=== PATIENT | female | born 1950 | race Caucasian/White ===

== ENCOUNTER 2020-08-26 18:07 | Emergency (ER) | payer MEDICARE, SELFPAY ==
--- NOTE | ~2020-08-26 | XR_ITS ---
EXAMINATION: XR hand RT min 3V DATE: 08/26/2020 18:41 INDICATION: Medial right hand pain post fall TECHNIQUE: Posteroanterior, oblique and lateral views of the right hand were obtained. COMPARISON: None. FINDINGS: Diffuse osteopenia. Alignment is normal. No fracture. Mild osteoarthritis at the triscaphe joint. Min imal osteoarthritis at several of the metacarpophalangeal and interphalangeal joints. Bone island at the fifth distal phalanx. Soft tissues are unremarkable. IMPRESSION: 1. No acute osseous abnormality. Reviewed, dictated and finalized at location H. OGRAPH WATCHER
--- NOTE | ~2020-08-26 | XR_ITS ---
EXAMINATION: XR forearm RT 2V DATE: 08/26/2020 18:40 INDICATION: Posterior right elbow pain post fall TECHNIQUE: AP an lateral views of the right forearm were obtained. COMPARISON: none FINDINGS: Oblique intra-articular fracture involving the olecranon. There is mild displacement with 2 mm lucent fracture gap at the articular cortex and 5 mm separation of the fracture margins at the posterior co rtex. Prominent overlying soft tissue swelling. Alignment is otherwise normal. No other fractures nella ntified. Minimal osteoarthritis at the right elbow. No joint effusion is present with displacement of the anterior fat pad. IMPRESSION: 1. Mildly displaced intra-articular fracture of the olecranon. Reviewed, dictated and finalized at location H. OLOGY TEACHER
--- NOTE | 2020-08-26 18:13 | ED.UPPEXIN ---
HPI - Extremity Injury (Upper) General Chief Complaint: Extremity Injury, Upper Stated Complaint: right elbow Time Seen by Provider: 08/26/20 18:25 Source: patient and RN notes reviewed Mode of arrival: ambulatory Limitations: no limitations History of Present Illness HPI narrative: 69-year-old female with history of dementia presents with concern for right elbow pain, right hand pain. Her reports she was taking a walk today, as she usually does, and returned complaining of arm pain. She does not remember how she sustained the injury. Her also reports abrasions to her face, inner lip. Reports she saw the dentist today who confirm she does not have any loose teeth and gave her a mouthwash for the abrasions on the inside of her mouth. She denies any other musculoskeletal pain. Denies any intervention for her pain. MD complaint: injury to: left, arm and elbow Related Data Home Medications Medication Instructions Recorded Confirmed alprazolam 0.25 mg tablet 0.25 mg PO TID PRN 12/14/19 08/26/20 duloxetine 60 mg capsule,delayed 60 mg PO DAILY 12/14/19 08/26/20 release mirtazapine 15 mg tablet 7.5 mg PO .hs tablet 12/14/19 08/26/20 rivastigmine 1 patch TRANSDERM DAILY 12/14/19 08/26/20 Allergies Allergy/AdvReac Type Severity Reaction Status Date / Time ciprofloxacin Allergy Mild Nausea and Verified 08/26/20 18:15 Vomiting sulfamethoxazole Allergy Mild Nausea and Verified 08/26/20 18:15 Vomiting trimethoprim Allergy Mild Nausea and Verified 08/26/20 18:15 Vomiting Review of Systems Review of Systems: Narrative: CONSTITUTIONAL: Denies malaise, chills, sweats, or fever. CARDIOVASCULAR: Denies chest pain, palpitations, or edema. RESPIRATORY: Denies cough or dyspnea. SKIN: Reports abrasions to upper lip MUSCULOSKELETAL: Reports right elbow pain, right hand pain NEUROLOGIC: Denies numbness, weakness All systems reviewed & are unremarkable except as noted in HPI and below PMFSH Social History Social History Smoking status: Never smoker Second hand tobacco smoke exposure: No Alcohol intake: never Comments At time of signature, agree with nursing past medical, surgical, social and family history. There is no relevant family history pertinent to the presenting complaint Exam Narrative: Exam Narrative: GENERAL: Well-appearing, well-nourished, and in no acute distress. HEAD: Normocephalic, atraumatic. EYES: PERRLA, conjunctivae clear NECK: Supple. CHEST: Speaks in full sentences. No respiratory distress. HEART: Regular rate and rhythm. Normal and equal peripheral pulses. EXTREMITIES: Right elbow has normal sensation, limited range of motion. Moderate edema, no ecchymosis.4/5 strength with [xxx] flexion and extension. Normal sensation with sensitivity to light touch and pain. Lateral elbow tenderness. No open wounds, no skin tenting, no devitalized tissue or atrophy, no trophic changes, no obvious deformity, alignment normal, nearby joints and structures intact. Distal pulses palpable and equal bilaterally, skin warm, dry, pink. Capillary refill less than 3 seconds. EXTREMITIES: Right hand and digits of hand have normal strength and sensation. 5/5 strength with digit flexion, extension. Range of motion normal. No clubbing, cyanosis, or edema noted. No tenderness. Skin intact. Normal digital cascade with flexion of fingers, median, ulnar and radial nerve intact. Normal sensation of each side of finger. Can perform 'okay' sign, 'cross over finger test of index and middle fingers' and 'thumbs up' sign. No scissoring. Normal thumb opposition. Good capillary refill and radial pulse. Distal capillary refill less than 3 seconds. SKIN: Warm, dry, no rash. Superficial abrasion noted to right upper lip NEURO: Alert and oriented x3. PSYCH: Normal mood and affect Course Course Emergency Course: Patient is aware of diagnosis, understands and agrees to treatment plan. Anticipatory guidance given. P
[2020-08-26 18:17] VITALS: BP 123/76; PULSE 70; RESP 18; TEMP 36.4; O2SAT 97
== END 2020-08-26 19:04 | disposition home or self-care (01) ==
PROVIDERS: Emergency Provider Nurse Practitioner; PCP Internal Medicine
DX: S52.021A Displaced fracture of olecranon process without intraarticular extension of right ulna, initial encounter for closed fracture (principal); X58.XXXA Exposure to other specified factors, initial encounter; F03.90 Unspecified dementia, unspecified severity, without behavioral disturbance, psychotic disturbance, mood disturbance, and anxiety; F41.9 Anxiety disorder, unspecified
CPT/HCPCS: 29105; 73090; 73130; 99214; A4565; G0463

== ENCOUNTER 2021-05-25 16:51 | Emergency (ER) | payer MEDICARE, SELFPAY ==
[2021-05-25 17:20] VITALS: BP 116/72; PULSE 83; RESP 17; TEMP 36.2; O2SAT 100
--- NOTE | 2021-05-25 17:52 | ED.BACK ---
HPI - Back Pain/Injury General Chief Complaint: Back Pain/Injury Stated Complaint: Lower Back Pain Time Seen by Provider: 05/25/21 17:40 Source: patient, family, RN notes reviewed and old records reviewed Mode of arrival: ambulatory Limitations: no limitations History of Present Illness HPI Narrative: 70 year old female accompanied by spouse with complaint of lower back discomfort ad some suprapubic tenderness since yesterday. states that patient has had no recent fall or any known injury to her back has had history of some back pain in the past and also history of previous UTI's. Patient has history of dementia and answers most questions for patient. He reports that he has treated her with Aleve and he has also given her AZO for her symptoms. No known fevers, chills or sweats, no nausea vomiting or diarrhea noted, appetite is good. states that she had been drinking sweet tea and he has eliminated that and has been having her drink water and cranberry juice. MD elicited complaint: back pain Related Data Home Medications Medication Instructions Recorded Confirmed alprazolam 0.25 mg tablet 0.25 mg PO TID PRN 12/14/19 05/25/21 rivastigmine 1 patch TRANSDERM DAILY 12/14/19 05/25/21 duloxetine 60 mg PO DAILY 05/25/21 05/25/21 memantine 10 mg PO DAILY 05/25/21 05/25/21 mirtazapine 30 mg PO DAILY 05/25/21 05/25/21 trazodone 50 mg PO DAILY 05/25/21 05/25/21 Allergies Allergy/AdvReac Type Severity Reaction Status Date / Time ciprofloxacin Allergy Mild Nausea and Verified 05/25/21 17:01 Vomiting sulfamethoxazole Allergy Mild Nausea and Verified 05/25/21 17:01 Vomiting trimethoprim Allergy Mild Nausea and Verified 05/25/21 17:01 Vomiting Review of Systems Review of Systems: CONSTITUTIONAL: Denies fever, chills, or sweats. EYES: Denies visual changes, redness, or discharge. ENT: Denies rhinorrhea, congestion, sore throat, or otalgia. CARDIOVASCULAR: Denies chest pain, palpitations, or edema. RESPIRATORY: Denies cough or dyspnea. GASTROINTESTINAL: suprapubic abdominal pain,no nausea, vomiting, or diarrhea. GENITOURINARY: Denies dysuria or hematuria. SKIN: Denies rash or itching. MUSCULOSKELETAL:Positive for lower back pain, joint pain, or myalgia. NEUROLOGIC: Denies headache, numbness, or weakness. PSYCHIATRIC:Positive history of anxiety or depression, dementia. All systems reviewed & are unremarkable except as noted in HPI and below PMFSH Past Medical History Medical History (Updated 05/27/21 @ 12:08 by Kacie Torre NP) Acute pancreatitis Anemia Anxiety Dementia Depression Diarrhea Injury of right elbow Sleep disorder UTI (urinary tract infection) Vision changes Surgical History Surgical History (Updated 05/27/21 @ 12:21 by Kacie Torre NP) H/O hemorrhoidectomy H/O inguinal hernia repair Hx of cholecystectomy Family History Family History (Updated 05/27/21 @ 12:09 by Kacie Torre NP) Mother Breast cancer Other Hypertension Social History Social History (Updated 05/27/21 @ 12:20 by Kacie Torre NP) Smoking status: Never smoker Second hand tobacco smoke exposure: No Alcohol intake: never Substance use: never Living arrangements: with family Gender identity (if verbalized by the patient): Female Comments At time of signature, agree with nursing past medical, surgical, social and family history. There is no relevant family history pertinent to the presenting complaint Exam Narrative: GENERAL: Well-appearing, well-nourished, and in no acute distress. HEAD: Normocephalic, atraumatic. EYES: PERRLA and EOMI. ENT: Nares clear, no rhinorrhea or epistaxis. Mucous membranes moist. NECK: Supple.no lymphadenopathy CHEST: Clear to auscultation. No respiratory distress.SAO2 100% on room air HEART: Regular rate and rhythm. No murmur heard. Normal peripheral pulses. ABDOMEN: Soft, suprapubic tender, nondistended, normal active bowel sounds.l
== END 2021-05-25 18:10 | disposition home or self-care (01) ==
PROVIDERS: Emergency Provider Registered Nurse; PCP Internal Medicine
DX: M54.5 Low back pain (principal); N39.0 Urinary tract infection, site not specified; F41.9 Anxiety disorder, unspecified; F32.9 Major depressive disorder, single episode, unspecified; F03.90 Unspecified dementia, unspecified severity, without behavioral disturbance, psychotic disturbance, mood disturbance, and anxiety; G47.9 Sleep disorder, unspecified
CPT/HCPCS: 81003; 87077; 87086; 87186; 99213; G0463

== ENCOUNTER 2021-06-26 11:40 | Observation (INO) | payer MEDICARE, SELFPAY ==
[2021-06-26] VITALS (31 sets, daily range): BP systolic 117–128; BP diastolic 71–100; PULSE 64–101; RESP 10–22; TEMP 36.1–36.8; O2SAT 89–100
--- NOTE | ~2021-06-26 | US_ITS ---
EXAMINATION: US carotid duplex BI EXAM DATE: 06/26/2021 18:00 INDICATION: L sided hemiparesis. TECHNIQUE: Grayscale, color and pulsed Doppler images of the cervical carotid arteries were obtained . The degree of vessel stenosis is placed in one of the following categories: normal, <50% stenosis, 50-69% stenosis, >=70% stenosis but less than near-occlusion, near-occlusion, or occlusion. Note that percent stenosis relative to normal distal artery lumen diameter is indirectly measured from velocit y measurements as described by Gerhard, et al. Radiology 2003; 229:340-346. There is no prior study fo r comparison. FINDINGS: RIGHT SIDE: Right common carotid artery peak systolic velocity (PSV in cm/s): 71 Right bulb/internal carotid artery peak systolic velocity (PSV in cm/s): 103 Right internal carotid artery end diastolic velocity (EDV in cm/s): 45 Right ICA/CCA peak systolic ratio: 1.5 Right external carotid artery peak systolic velocity (PSV in cm/s): 66 Right vertebral artery antegrade flow: yes There is no focal plaque identified. LEFT SIDE: Left common carotid artery peak systolic velocity (PSV in cm/s): 77 Left bulb/internal carotid artery peak systolic velocity (PSV in cm/s): 92 Left internal carotid artery end diastolic velocity (EDV in cm/s): 40 Left ICA/CCA peak systolic ratio: 1.2 Left external carotid artery peak systolic velocity (PSV in cm/s): 57 Left vertebral artery antegrade flow: yes There is no focal plaque identified. IMPRESSION: 1. Normal right internal carotid artery. 2. Normal left internal carotid artery. > Reviewed, dictated and finalized at location G.
--- NOTE | ~2021-06-26 | XR_ITS ---
EXAMINATION: XR chest 1V portable INDICATION: Transient alteration of awareness TECHNIQUE: Portable AP chest at 1215 hours COMPARISON: 11/21/2018 FINDINGS: The lungs are free of acute opacities. There is no pleural effusion or pneumothorax. The ca rdiomediastinal silhouette is normal. IMPRESSION: 1. No acute cardiopulmonary abnormality. Reviewed, dictated and finalized at location A.
--- NOTE | ~2021-06-26 | CT_ITS ---
EXAMINATION: CT brain wo con EXAM DATE: 06/26/2021 12:27 INDICATION: Altered mental status. History of dementia. TECHNIQUE: Spiral CT of the head was performed without contrast. Axial, coronal and sagittal images were reviewed. The dose-length product (DLP) for this examination was 605.33 mGy-cm. The exposure w as tailored according to patient size, and iterative reconstruction (ASIR) was used as additional dos e reduction technique. Comparison is made to prior examination from 06/30/2019. FINDINGS: Again there is diffuse severe atrophy of the temporal lobes bilaterally causing dilated tem poral horns of the lateral ventricle. Mild global atrophy elsewhere. Mild to moderate microangiopathy . No brain mass, extra-axial collections, acute intracranial hemorrhage or obstructive hydrocephalus. Orbits and soft tissues unremarkable. Visualized sinuses and mastoid air cells well-aerated. IMPRESSION: Severe bilateral temporal lobe atrophy. Reviewed, dictated and finalized at location B.
--- NOTE | ~2021-06-26 | MR_ITS ---
EXAMINATION: MR brain/brain stem wo/w con EXAM DATE: 06/26/2021 17:46 INDICATION: Left sided hemiparesis. Left facial droop, slurred speech. Symptoms started about 11 a.m. For prior episodes of this. TECHNIQUE: Magnetic resonance imaging (MRI) of the brain/brain stem obtained without contrast. Sagit julia T1, axial diffusion, gradient echo (T2*), T1, T2, FLAIR sequences obtained. Patient was then inj ected with 10 cc intravenous Multihance contrast. Axial and coronal postcontrast T1 weighted sequence s obtained. Comparison is made to prior examination from 07/13/2019. Correlation was made with head CT earlier same date. FINDINGS: There is severe bilateral temporal lobe atrophy and mild atrophy elsewhere. This has progre ssed slightly compared to 2019. There is mild microangiopathy. There are no areas of restricted diffu rachel to suggest acute infarction. There is no acute hemorrhage seen on the T2*, a hemosiderin sensit felipe sequence. No intraparenchymal brain mass. The ventricles are normal in size. There are no extra -axial collections. Flow voids are seen in the cerebral arteries on the T2-weighted sequences consis tent with their expected patency. The orbits are unremarkable. Soft tissue is unremarkable. Postco ntrast images limited from motion. IMPRESSION: 1. No acute intracranial findings. 2. Severe bilateral temporal lobe atrophy. Reviewed, dictated and finalized at location G.
--- NOTE | 2021-06-26 11:51 | ED.GENADULT ---
HPI - General Adult General Chief complaint: Altered Mental Status Stated complaint: AMS X 10 MINUTES/RESOLVED Time Seen by Provider: 06/26/21 11:51 Source: RN notes reviewed History of Present Illness HPI narrative: Patient presents emergency department from home via EMS for altered mental status. Patient's states the patient was to bed approximately midnight last night. He states he started approximately 3 AM she got up to go the bathroom and was normal this morning the patient normally wakes up at 930 and she not gotten up and he went to the room to see the patient was okay he states when he came into the patient was sitting up in bed slumped over to her left and had left facial droop she was having slurred speech at that time and was too weak to get off the bed this episode lasted for approximately 10 to 15 minutes and resolved and patient is back at baseline at this time per the patient and patient denies any new unilateral weakness that she was aware of she denies any fevers or chills chest pain shortness of breath or any other symptoms Related Data Home Medications Medication Instructions Recorded Confirmed alprazolam 0.25 mg tablet 0.25 mg PO BID PRN 12/14/19 05/25/21 duloxetine 60 mg PO HS 05/25/21 05/25/21 memantine 10 mg PO DAILY 05/25/21 05/25/21 mirtazapine 30 mg PO HS 05/25/21 05/25/21 trazodone 50 mg PO DAILY 05/25/21 05/25/21 rivastigmine 13.3 mg TRANSDERMAL DAILY 06/26/21 tramadol 50 mg PO HS PRN 06/26/21 Allergies Allergy/AdvReac Type Severity Reaction Status Date / Time ciprofloxacin Allergy Mild Nausea and Verified 05/25/21 17:01 Vomiting sulfamethoxazole Allergy Mild Nausea and Verified 05/25/21 17:01 Vomiting trimethoprim Allergy Mild Nausea and Verified 05/25/21 17:01 Vomiting Review of Systems Review of Systems: Gen.: Denies fevers or chills Eyes: Denies eye pain or visual change ENT: Denies congestion Respiratory: Denies shortness of breath or cough CV: Denies chest pain or palpitations GI: Denies abdominal pain nausea, emesis or diarrhea Musculoskeletal: Denies back pain or muscle pain Neuro: See HPI Skin: Denies rash Except as documented, all other systems reviewed and negative PMF Past Medical History Medical History (Updated 06/26/21 @ 16:23 by Jefferson Redd DO) Anxiety Dementia Depression Hiatal hernia Sleep disorder Surgical History Surgical History History of hemorrhoidectomy History of hysteroscopy History of inguinal hernia repair History of laparoscopic cholecystectomy (06/2012) Family History Family History (Updated 06/26/21 @ 15:33 by Martine Dawkins PA-C) Mother Breast cancer Other Hypertension Parkinsons disease Social History Social History (Updated 06/26/21 @ 15:33 by Martine Dawkins PA-C) Social History: Surrogate decision maker: Mc Matias, . Code status: Full code. Smoking status: Never smoker Second hand tobacco smoke exposure: No Alcohol intake: never Substance use: never Additional living arrangements comments: Resides in [place] with her . Additional occupation/education comments: Retired. Exam Narrative: APPEARANCE: No acute distress, nontoxic, resting in bed HEENT: Normocephalic, atraumatic, OMM EYES: PERRL, EOMI RESPIRATORY: No respiratory distress, clear to auscultation bilaterally with no rhonchi wheezing or rales CARDIOVASCULAR: RRR s murmur ABDOMINAL: Soft, nontender, nondistended MUSCULOSKELETAL: Moves all extremities. No clubbing, cyanosis or edema. NEURO: A and O ?3, following commands, speech normal, cranial nerves II through XII grossly intact,muscle strength 5 out of 5 bilateral upper and lower extremities SKIN:: Warm, dry. Normal Color PSYCHIATRIC: Normal affect/mood Course Course Emergency Course: Called and discussed with ANÍBAL Farley for Dr. Denton presentation work-up agrees with adm
--- NOTE | 2021-06-26 11:58 | ECG_ITS ---
Measurements Intervals [place] Rate: 75 P: 63 HI: 165 QRS: 66 QRSD: 80 T: 65 QT: 357 QTc: 399 Interpretive Statements SINUS RHYTHM NORMAL ECG Electronically Signed On 06-26-2021 14:44:04 CDT by Clark Ojeda D.O.
[2021-06-26 12:09] LABS: Basophils Absolute Auto 0.1 K/mm3 (0.0-0.1); Eosinophils Absolute Auto 0.1 K/mm3 (0-0.3); Eosinophils Percent Auto 1.8 % (0-4.4); Hematocrit 40.7 % (37.0-47.0); Hemoglobin 13.3 g/dL (12.0-15.0); Immature Granulocyte Absolute 0.01 K/mm3 (0.00-0.031); Immature Granulocyte Percent A 0.2 % (0-0.5); Lymphocytes Absolute Auto 2.11 K/mm3 (0.9-3.2); Lymphocytes Percent Auto 42.3 % (18.3-44.2); Mean Corpuscular HGB Conc 32.7 g/dl (32-36); Mean Corpuscular Hemoglobin 30.1 pg (26-34); Mean Corpuscular Volume 92.1 fl (80-100); Monocytes Absolute Auto 0.3 K/mm3 (0.1-0.6); Monocytes Percent Auto 6.8 % (2.6-8.5); Neutrophils Absolute Auto 2.4 K/mm3 (1.3-6.7); Neutrophils Percent Auto 47.9 % (45.5-73.1); Platelet Count Result 243 k/mm3 (150-375); Red Blood Count 4.42 M/mm3 (4.2-5.4); Red Cell Distribution Width 13.2 % (11.5-14.5)
[2021-06-26 12:20] LABS: Alanine Aminotransferase 12 U/L (4-35); Albumin Level 4.2 g/dL (3.5-5.1); Alkaline Phosphatase 74 U/L (38-126); Anion Gap 6 mmol/L (8-16); Aspartate Amino Transferase 33 U/L (14-36); Bilirubin,Total 0.7 mg/dL (0.2-1.3); Blood Urea Nitrogen 14 mg/dL (7-17); Calcium 9.6 mg/dL (8.4-10.2); Carbon Dioxide 26 mmol/L (22-30); Chloride 106 mmol/L (98-107); Estimated CRCL calculation 49 ml/min; Estimated Glomerular Filt Rate > 60; Glucose 113 mg/dL (65-110); Potassium 4.1 mmol/L (3.4-5.0); Sodium 138 mmol/L (137-145)
[2021-06-26 13:07] LABS: Troponin I < 0.012 ng/mL (0.000-0.034)
--- NOTE | 2021-06-26 13:45 | PC.NURSE ---
pt amb to bathroom to collect ua specimen. amb with steady gait. pt instructed to urinate in cup. looked at this rn and while voiding spit in ua container. assisted back into bed.
--- NOTE | 2021-06-26 14:29 | PC.NURSE ---
pt straight cathed for urine. minimal urine returned and sent to lab. pts remains at bedside.
[2021-06-26] MEDS: ASPIRIN 81 MG CHEWABLE TABLET 324 MG PO (15:10)
--- NOTE | 2021-06-26 15:14 | PC.NURSE ---
pt remains pleasant and cooperative. offered food but states will eat at home. pt not grasping concept that she will be admitted.
--- NOTE | 2021-06-26 15:25 | PM.IMHP ---
H&P: HPI History of Present Illness Date/Time: 06/26/21 15:25 Chief Complaint: Altered mental status. Narrative: This is a 70-year-old female with dementia who presented to the emergency department earlier today via EMS from home for evaluation of altered mental status. She is not a great historian and as such some of the following is obtained via a review of her electronic medical records as well as her . She seemed to be in her usual state of health when she went to bed last night around midnight. At 03:00 she got up to use the restroom and seemed fine at that time as well. Her went to check on her when she was not yet out of bed at 09:30, which is unusual for her. He found her sitting up in bed, slumped to the left side with an noticeable left-sided facial droop. Her speech was also slurred at that time and she appeared to be too weak to get herself up off of the bed. Her symptoms lasted 10 to 15 minutes before resolving and she is now back at baseline. On EMS arrival her stroke scale was 0 and glucose was 108. CT of the brain showed severe bilateral temporal lobe atrophy but no other findings. Patient has no history of TIA or CVA nor does she have any significant risk factors for such. She admits that sometimes she will take an extra Xanax when she gets up in the middle night to go to the bathroom but she does not think that she did that this morning. At the time my evaluation she has no complaints and she specifically denies headache, vertigo, auditory visual changes, focal weakness, paresthesias, slurred speech, facial droop, and difficulty swallowing. Review of Systems Review of Systems: Twelve systems were reviewed with pertinent positives and negatives as per HPI. Somewhat limited and the accuracy of such is questionable due to her underlying dementia. She denies fever, chills, and sweats. No recent cold or flu symptoms. She denies chest pain shortness of breath. No palpitations or history of cardiac dysrhythmia. Except as documented, all other systems were reviewed and are negative. [facility] Past Medical History Medical History (Updated 06/26/21 @ 22:41 by Martine Dawkins PA-C) Anxiety Dementia Hiatal hernia Sleep disorder Surgical History Surgical History History of hemorrhoidectomy History of hysteroscopy History of inguinal hernia repair History of laparoscopic cholecystectomy (06/2012) Family History Family History Mother Breast cancer Other Hypertension Parkinsons disease Social History Social History (Updated 06/26/21 @ 22:41 by Martine Dawkins PA-C) Social History: Surrogate decision maker: Mc Matias, . Code status: Full code. Smoking status: Never smoker Second hand tobacco smoke exposure: No Alcohol intake: never Substance use: never Substance use type: does not use Additional living arrangements comments: Resides in [place] with her . They have 2 sons. 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 Meds Home Medications and Allergies Home Medications Medication Instructions Recorded Confirmed Type alprazolam 0.25 mg tablet 0.25 mg PO BID PRN 12/14/19 06/26/21 History duloxetine 60 mg PO HS 05/25/21 06/26/21 History memantine 10 mg PO DAILY 05/25/21 06/26/21 History mirtazapine 30 mg PO HS 05/25/21 06/26/21 History trazodone 50 mg PO DAILY 05/25/21 06/26/21 History melatonin 10 mg PO HS 06/26/21 06/26/21 History rivastigmine 13.3 mg TRANSDERMAL DAILY 06/26/21 06/26/21 History Allergies Allergy/AdvReac Type Severity Reaction Status Date / Time ciprofloxacin Allergy Mild Nausea and Verified 06/26/21 17:10 Vomiting sulfamethoxazole Allergy Mild Nausea and Verified 06/26/21 17:10 Vomiting trimethoprim Allergy Mild Nausea and Verified 06/26/21 17:10
[2021-06-26 15:58] LABS: Add Urine Microscopic? YES; Amorphous Sediment Urine Few; Appearance Urine Cloudy (Clear); Bacteria Urine Trace /hpf; Bilirubin Urine Negative (Negative); Blood Urine Negative (Negative); Color Urine Yellow (Yellow); Glucose Urine UA Negative (Negative); Ketones Urine Trace mg/dL (Negative); Leukocyte Esterase Ur Negative LEU/UL (Negative); Mucus Urine Rare /lpf; Nitrate Urine Positive (Negative); Protein Urine Negative (Negative); RBC Urine 0-2 /hpf (0-2); Specific Grav Ur 1.017 (1.001-1.035); Urobilinogen Urine Negative mg/dL (<2.0); WBC Urine 0-3 /hpf
--- NOTE | 2021-06-26 16:30 | ADMGEN ---
This patient, Judy Matias, was admitted to 2 Medical Room 256-01. Patient/family oriented to hospital policies and general routines including ID bracelet, bed and alarms, visiting hours, pain management, procedures, bathroom and other care routines, personal items, smoking policy, room service/diet, and visiting hours. Information on how to activate the Rapid Response Team has been discussed. Patient/Family are encouraged to report perceived risks to care and to ask questions if they do not understand what they are told or what they should do.
[2021-06-26 18:47] LABS: Troponin I < 0.012 ng/mL (0.000-0.034)
[2021-06-26 20:03] LABS: Thyroid Stimulating Hormone Reflex 0.401 uIU/mL (0.465-4.68)
[2021-06-26 21:06] LABS: Free T4 Free Thyroxine Reflex 1.02 ng/dL (0.78-2.19)
[2021-06-26 21:18] LABS: Troponin I < 0.012 ng/mL (0.000-0.034)
[2021-06-26 22:21] LABS: Total Triiodothyronine (T3) 1.06 NG/ML (0.97-1.69)
[2021-06-26] MEDS: ALPRAZolam (*CRX) 0.25 MG TABLET PO (22:50)
[2021-06-26] MEDS: MELATONIN 5 MG TABLET 10 MG PO (22:50)
[2021-06-26] MEDS: DULoxetine HCL 60 MG CAPSULE.DR PO (22:51)
[2021-06-26] MEDS: traZODone HCL 50 MG TABLET PO (22:51)
[2021-06-26] MEDS: MIRTAZAPINE 30 MG TABLET PO (22:51)
[2021-06-27] VITALS (7 sets, daily range): BP systolic 109–134; BP diastolic 66–72; PULSE 60–83; RESP 18–20; TEMP 36.4–36.6; O2SAT 98
[2021-06-27 05:48] LABS: Anion Gap 6 mmol/L (8-16); Blood Urea Nitrogen 16 mg/dL (7-17); Calcium 9.9 mg/dL (8.4-10.2); Carbon Dioxide 29 mmol/L (22-30); Chloride 105 mmol/L (98-107); Cholesterol 199 mg/dL (0-200); Estimated CRCL calculation 45 ml/min; Estimated Glomerular Filt Rate 55; Glucose 92 mg/dL (65-110); HDL Direct 90 mg/dL; Potassium 4.2 mmol/L (3.4-5.0); Sodium 140 mmol/L (137-145); Triglycerides 157 mg/dL (<150)
[2021-06-27 05:58] LABS: LDL Cholesterol Direct 70 mg/dL
[2021-06-27] MEDS: MEMANTINE 10 MG TABLET PO (08:08)
[2021-06-27] MEDS: ASPIRIN 81 MG ENTERIC TABLET PO (09:07)
--- NOTE | 2021-06-27 14:49 | PM.DS ---
DS: Admitting Diagnosis Discharge Date 06/27/21 Admitting Diagnosis Stroke like symptoms DS: Discharge Diagnosis Discharge Diagnosis (1) Transient neurological symptoms: Code(s): R29.818 - Other symptoms and signs involving the nervous system Status: Acute Assessment and Plan: The patient is a pleasant 70-year-old woman with a history of dementia, who presented to the emergency room with altered mental status. The patients states he became concerned his was not out of bed by 9:30 a.m. so he went to check on her. He found the patient slumped to the left side with a noticeable left-sided facial droop, slurred speech and generalized weakness with trouble getting out of bed. Symptoms lasted 10-15 minutes before resolving and now back to baseline. EMS was called and brought in for further evaluation and stroke workup. Initial vitals showed normal blood pressure 126/87, heart rate 94 beats per minute, afebrile, normal oxygenation on room air. Initial labs showed normal CBCT with differential, normal CMP, troponin negative x3, TSH slightly low, but normal T3 and T4. Will need TSH with reflex in 6 weeks by primary care provider. Urinalysis show positive nitrite, but no leuk esterase or wbc's. Urine culture was refluxed and pending at this time. Chest x-ray was normal. CT head showed severe bilateral temporal lobe atrophy. Patient was admitted for further evaluation workup to rule out stroke. MRI was obtained showing no acute intracranial findings, severe bilateral temporal lobe atrophy. Carotid Doppler studies showed no internal artery stenosis. 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 On telemetry the patient was in normal sinus rhythm with a heart rate of 73 beats per minute, around midnight the patient had sinus tachycardia at a heart rate of 130 beats per minute with a run of only 12 beats. No other signs of acute arrhythmia. Upon talking to the patient and her he states she has had about 5 of these episodes in the past, in the all occur in the morning time and resolve fairly quickly. This episode lasted the longest and meeting the most concerned. We talked about the patient possibly needing a chain pegger to further evaluate her heart and rule out any acute arrhythmia like atrial fib her atrial flutter. The patient's feels with her dementia she would not tolerate a chain pegger at this time. I told him to discuss further with his primary care provider and see what they recommend. At this time since she has had multiple episodes that are stroke-like, I will start aspirin 81 mg daily to trying prevent further episodes. The patient otherwise at her baseline and feels comfortable with taking her home at this time. The patient is in stable condition. The has been understands and agrees the plan, all questions answered. Follow-up instructions given. Return to ER warnings given. Instructed to follow-up with her neurologist within 1 week for further evaluation and monitoring after discharge. (2) Dementia: Code(s): F03.90 - Unspecified dementia without behavioral disturbance Status: Acute DS: Summary Hospital Course Hospital Course: see above Status at Discharge Cognitive/behavioral status at discharge: Stable, improved. Time Spent with Patient Time attestation: Total time spent providing and/or coordinating discharge services: 42 Time spent: Greater than 30 minutes Exam Narrative: General: 70-year-old pleasant woman sitting up in bed with at bedside. Appears comfortable. In no acute distress. Skin: No jaundice or cyanosis. Good skin turgor. Neck: Full range of motion. Supple. Respiratory: Lungs are clear to auscultation bilaterally. No bony chest wall tenderness. Cardiovascular: The heart has a regula
--- NOTE | 2021-06-27 22:48 | ECHO_ITS ---
Patient Info Name: Judy Matias Age: 70 years : 1950 Gender: Female Ht: 67 in Wt: 130 lbs BSA: 1.67 m2 HR: 63 bpm BP: 109 / 66 mmHg Exam Date: 06/27/2021 10:29 AM Exam Location: [facility] Patient Status: Outpatient Admit Date: 06/26/2021 Staff Ordering Physician: Martine Dawkins PA-C Stack Matcher: Malick Salgado RDCS, RT Attending Provider: Felecia Doyle PA-C Referring Physician: Juancho MCGRATH; Exam Type: CA echo doppler color flow Study Info Indications G45.8 - Other transient cerebral ischemic attacks and related syndromes Complete two-dimensional, color flow and Doppler transthoracic echocardiogram is performed. Strain analysis performed. Summary 1. Complete two-dimensional, color flow and Doppler transthoracic echocardiogram is performed. 2. Left ventricular chamber dimension is normal. 3. Left ventricular systolic function is normal, estimated at 60-65%. 4. The left ventricular diastolic function is abnormal. 5. E/e' 10 is mildly elevated. 6. Global longitudinal strain is normal at -22.0%. 7. Interatrial septal aneurysm with no evidence of shunting. Left Ventricle E/e' 10 is mildly elevated. Global longitudinal strain is normal at -22.0%. Left ventricular chamber dimension is normal. Left ventricular systolic function is normal, estimated at 60-65%. The left ventricular diastolic function is abnormal. Right Ventricle Right ventricular systolic function is normal and with normal TAPSE 2.0 cm. Right ventricular chamber dimension is normal. Left Atria Left atrial chamber dimension is normal. Right Atria Right atrial chamber dimension is normal. Atrial Septum Interatrial septal aneurysm with no evidence of shunting. Aortic Valve The aortic valve is trileaflet. There is no aortic valve stenosis. There is no aortic valve regurgitation. Pulmonic Valve There is no pulmonic regurgitation. Mitral Valve There is no mitral valve stenosis. There is no mitral valve regurgitation. Tricuspid Valve There is no tricuspid valve regurgitation. Pericardium/Pleural There is no pericardial effusion. Inferior Vena Cava Normal inferior vena cava with >50% collapse upon inspiration consistent with normal right atrial pressure, 5 mmHg. Aorta The aortic root size at the sinus of Valsalva is normal. Left Ventricular Outflow Tract Name Value Normal LVOT 2D LVOT Diameter 2.0 cm LVOT Doppler LVOT Peak Gradient 4 mmHg LVOT Mean Gradient 2 mmHg LVOT VTI 17 cm LVOT VTI/AV VTI Ratio 0.7 LVOT Stroke Volume 51 ml LVOT CO 3.4 l/min LVOT CI 2.0 l/min/m2 Mitral Valve Name Value Normal MV Doppler MV
== END 2021-06-27 15:20 | disposition home or self-care (01) ==
LOC: ANHED 12:08 → ANH2MED 15:11
PROVIDERS: Physician Assistant; Admitting Provider Family Medicine; Emergency Provider Emergency Medicine; PCP Internal Medicine; Visit Provider Physician Assistant
DX: R41.82 Altered mental status, unspecified (principal); N39.0 Urinary tract infection, site not specified; B96.20 Unspecified Escherichia coli [E. coli] as the cause of diseases classified elsewhere; R47.81 Slurred speech; R29.810 Facial weakness; F03.90 Unspecified dementia, unspecified severity, without behavioral disturbance, psychotic disturbance, mood disturbance, and anxiety; G81.94 Hemiplegia, unspecified affecting left nondominant side; F41.8 Other specified anxiety disorders; Z79.899 Other long term (current) drug therapy
CPT/HCPCS: 36415; 51701; 70450; 70553; 71045; 80048; 80053; 80061; 81001; 82607; 84439; 84443; 84480; 84484; 85025; 87077; 87086; 87088; 87186; 93005; 93306; 93880; 99285; A9270; A9577; G0378

== ENCOUNTER 2022-01-03 12:50 | Emergency (ER) | payer MEDICARE, SELFPAY ==
--- NOTE | 2022-01-03 13:04 | ED.FEMALEGU ---
HPI - Female Genitourinary General Chief complaint: Urogenital-Female Stated complaint: uti Time Seen by Provider: 01/03/22 13:04 Source: patient Mode of arrival: ambulatory Limitations: no limitations History of Present Illness HPI Narrative: 71-year-old female with history of dementia presents with her with complaint of low back pain. reports that patient goes on a daily walk when she came back from a walk today she complained of low back pain. Patient denies injury but states that she saw something the ground and bent over to pick it up. Did not give patient any pain medicine prior to arrival. reports that patient had similar back pain when she had a urinary tract infection. Patient is ambulatory and hunched over, walking slowly, appearing to be in pain. She denies numbness and tingling or pain to extremities. She denies weakness. She denies urinary symptoms but reports due to dementia she would not be able to answer those questions appropriately. All systems reviewed and negative except as noted above. Related Data Home Medications Medication Instructions Recorded Confirmed alprazolam 0.25 mg tablet 0.25 mg PO BID PRN 12/14/19 01/03/22 memantine 10 mg PO DAILY 05/25/21 01/03/22 mirtazapine 30 mg PO HS 05/25/21 01/03/22 melatonin 10 mg PO HS 06/26/21 01/03/22 rivastigmine 13.3 mg TRANSDERMAL DAILY 06/26/21 01/03/22 Allergies Allergy/AdvReac Type Severity Reaction Status Date / Time ciprofloxacin Allergy Mild Nausea and Verified 01/03/22 13:20 Vomiting sulfamethoxazole Allergy Mild Nausea and Verified 01/03/22 13:20 Vomiting trimethoprim Allergy Mild Nausea and Verified 01/03/22 13:20 Vomiting Review of Systems Review of Systems: CONSTITUTIONAL: Denies fever, chills, or sweats. EYES: Denies visual changes, redness, or discharge. ENT: Denies rhinorrhea, congestion, sore throat, or otalgia. CARDIOVASCULAR: Denies chest pain, palpitations, or edema. RESPIRATORY: Denies cough or dyspnea. GASTROINTESTINAL: Denies abdominal pain, nausea, vomiting, or diarrhea. GENITOURINARY: Denies dysuria or hematuria. SKIN: Denies rash or itching. MUSCULOSKELETAL: Reports low back pain. NEUROLOGIC: Denies headache, numbness, or weakness. PSYCHIATRIC: Denies anxiety or depression. All other systems reviewed are negative, except as documented in HPI. [facility] Past Medical History Medical History Anxiety Dementia Hiatal hernia Sleep disorder Surgical History Surgical History History of hemorrhoidectomy History of hysteroscopy History of inguinal hernia repair History of laparoscopic cholecystectomy (06/2012) Family History Family History Mother Breast cancer Other Hypertension Parkinsons disease Social History Social History Social History: Surrogate decision maker: Mc Matias, . Code status: Full code. Second hand tobacco smoke exposure: No Alcohol intake: never Substance use: never Substance use type: does not use Additional living arrangements comments: Resides in [place] with her . They have 2 sons. 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 Comments At time of signature, agree with nursing past medical, surgical, social and family history. There is no relevant family history pertinent to the presenting complaint. Exam Narrative: GENERAL: This is a well-nourished, well-developed patient, in no apparent distress. HEAD: normocephalic, atraumatic. EYES: PERRL. Sclera clear/white. Vision is grossly intact. EARS: External ears normal NOSE: External nose normal THROAT: Mucous membranes moist NECK: Neck supple, non-tender without lymphadenopathy, masses or
[2022-01-03 13:05] VITALS: BP 119/70; PULSE 73; RESP 16; TEMP 36.6; O2SAT 100
[2022-01-03] MEDS: KETOROLAC 30 MG/ML VIAL (*BKC) 15 MG IM (13:32)
== END 2022-01-03 13:55 | disposition home or self-care (01) ==
PROVIDERS: Emergency Provider Nurse Practitioner Family; PCP Internal Medicine
DX: S39.012A Strain of muscle, fascia and tendon of lower back, initial encounter (principal); X58.XXXA Exposure to other specified factors, initial encounter; N39.0 Urinary tract infection, site not specified; F41.9 Anxiety disorder, unspecified; F03.90 Unspecified dementia, unspecified severity, without behavioral disturbance, psychotic disturbance, mood disturbance, and anxiety; G47.9 Sleep disorder, unspecified
CPT/HCPCS: 81003; 87077; 87086; 87186; 96372; 99213; G0463; J1885

== ENCOUNTER 2022-02-24 17:05 | Emergency (ER) | payer MEDICARE, SELFPAY ==
[2022-02-24 17:19] VITALS: BP 96/62; PULSE 62; RESP 16; TEMP 36.4; O2SAT 100
--- NOTE | 2022-02-24 17:30 | ED.FEMALEGU ---
HPI - Female Genitourinary General Chief complaint: Urogenital-Female Stated complaint: uti Time Seen by Provider: 02/24/22 17:30 Source: patient, family (), RN notes reviewed and old records reviewed Mode of arrival: ambulatory Limitations: no limitations History of Present Illness HPI Narrative: 71-year-old female with a history of severe dementia presents to the [facility] with her . states he thinks she has a UTI due to going to the bathroom on a more frequent basis. Holding her lower back. He denies her having any fevers, nausea, vomiting. Has a decreased appetite. Related Data Home Medications Medication Instructions Recorded Confirmed alprazolam 0.25 mg tablet 0.25 mg PO BID PRN 12/14/19 02/04/22 memantine 10 mg PO DAILY 05/25/21 02/04/22 mirtazapine 30 mg PO HS 05/25/21 02/04/22 melatonin 10 mg PO HS 06/26/21 02/04/22 rivastigmine 13.3 mg TRANSDERMAL DAILY 06/26/21 02/04/22 Allergies Allergy/AdvReac Type Severity Reaction Status Date / Time ciprofloxacin Allergy Mild Nausea and Verified 02/04/22 14:07 Vomiting sulfamethoxazole Allergy Mild Nausea and Verified 02/04/22 14:07 Vomiting trimethoprim Allergy Mild Nausea and Verified 02/04/22 14:07 Vomiting Review of Systems Review of Systems: All systems reviewed & are unremarkable except as noted in HPI and below Constitutional: Constitutional: Reports no additional constitutional complaints, Denies chills and Denies fatigue Eyes: Eyes: Reports no additional eye complaints ENT: Reports system reviewed and no additional complaints, except as documented Cardiovascular: Cardiovascular: Reports no additional cardiovascular complaints Respiratory: Respiratory: Reports no additional respiratory complaints Gastrointestinal: Gastrointestinal: Reports no additional gastrointestinal complaints, Denies abdominal pain, Denies diarrhea, Denies nausea and Denies vomiting Genitourinary: Genitourinary: Reports as per HPI, Denies hematuria, Reports nocturia, Reports dysuria, Denies flank pain, Denies urinary incontinence and Denies vaginal discharge Musculoskeletal: Musculoskeletal: Reports no additional musculoskeletal complaints and Denies back pain Integumentary/Breasts: Skin/Breast: Reports system reviewed and no additional complaints, except as docu Neurologic: Reports system reviewed and no additional complaints, except as documented Psychiatric: Psychiatric: Reports no additional psychiatric complaints Allergic/Immunologic: Allergic/Immunologic: Reports no additional allergic/immunologic complaints [facility] Past Medical History Medical History (Updated 02/24/22 @ 17:59 by Adrianna Hewitt APRN) Anxiety Dementia Hiatal hernia Seizure disorder Sleep disorder Surgical History Surgical History History of hemorrhoidectomy History of hysteroscopy History of inguinal hernia repair History of laparoscopic cholecystectomy (06/2012) Family History Family History Mother Breast cancer Other Hypertension Parkinsons disease Social History Social History Social History: Surrogate decision maker: Mc Matias, . Code status: Full code. Second hand tobacco smoke exposure: No Alcohol intake: never Substance use: never Substance use type: does not use Additional living arrangements comments: Resides in [place] with her . They have 2 sons. 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 Comments At the time of my signature, I reviewed and agree with the nursing past medical, surgical, social, and family history. There is no relevant family history pertinent to the patient complaint. Exam Const: General: healthy appearing, no acute distress, alert and well groomed N
== END 2022-02-24 18:04 | disposition home or self-care (01) ==
PROVIDERS: Emergency Provider Nurse Practitioner; PCP Internal Medicine
DX: N30.00 Acute cystitis without hematuria (principal); F03.90 Unspecified dementia, unspecified severity, without behavioral disturbance, psychotic disturbance, mood disturbance, and anxiety; F41.9 Anxiety disorder, unspecified; G47.9 Sleep disorder, unspecified
CPT/HCPCS: 81003; 87086; 87088; 99213; G0463

== ENCOUNTER 2022-12-17 10:56 | Outpatient (NON) | payer MEDICARE, SELFPAY | END 2022-12-17 10:57 | disposition home or self-care (01) | PROVIDERS: PCP Internal Medicine; Visit Provider Nurse Practitioner Family | DX: R19.4 Change in bowel habit (principal) | CPT/HCPCS: 87045; 87427 ==

== ENCOUNTER 2023-04-21 10:26 | Emergency (ER) | payer MEDICARE, SELFPAY ==
[2023-04-21 10:32] VITALS: BP 151/113; PULSE 73; RESP 16; TEMP 36.6; O2SAT 97
--- NOTE | 2023-04-21 11:06 | ED.GENADULT ---
HPI - General Adult General Chief complaint: Neuro Symptoms/Deficit Stated complaint: resolved stroke like symptoms, unknown LKW Time Seen by Provider: 04/21/23 10:48 History of Present Illness HPI narrative: 72-year-old female with history of dementia presented to the emergency department for evaluation for mental status change. Family states patient does have history of dementia and does reside in a local senior care. Patient has no prior history of CVA or seizure. Family reports that the senior care staff went to check on the patient and she was having some facial droop and was holding her right arm to her chest and patient was emotionally labile and tearful which is abnormal for her. [facility] called EMS and by the time EMS arrived patient was back to her baseline. In the emergency department family states that the patient is at her baseline which is AO x1. Related Data Home Medications Medication Instructions Recorded Confirmed alprazolam 0.25 mg tablet 0.25 mg PO BID PRN Agitation 12/14/19 02/04/22 memantine 10 mg tablet 10 mg PO DAILY 05/25/21 02/04/22 mirtazapine 30 mg tablet 30 mg PO HS 05/25/21 02/04/22 melatonin 10 mg tablet 10 mg PO HS 06/26/21 02/04/22 rivastigmine 13.3 mg/24 hour 13.3 mg transdermal DAILY 06/26/21 02/04/22 transdermal patch Allergies Allergy/AdvReac Type Severity Reaction Status Date / Time ciprofloxacin Allergy Mild Nausea and Verified 02/04/22 14:07 Vomiting sulfamethoxazole Allergy Mild Nausea and Verified 02/04/22 14:07 Vomiting trimethoprim Allergy Mild Nausea and Verified 02/04/22 14:07 Vomiting Review of Systems Review of Systems: All systems reviewed & are unremarkable except as noted in HPI and below PMFSH Past Medical History Medical History (Updated 04/21/23 @ 11:13 by Keith Diaz MD) Anxiety Dementia Hiatal hernia Seizure disorder Sleep disorder Surgical History Surgical History History of hemorrhoidectomy History of hysteroscopy History of inguinal hernia repair History of laparoscopic cholecystectomy (06/2012) Family History Family History Mother Breast cancer Other Hypertension Parkinsons disease Social History Social History (Reviewed 02/24/22 @ 19:08 by KWESI Banks Social History: Surrogate decision maker: Mc Matias, . Code status: Full code. Second hand tobacco smoke exposure: No Alcohol intake: never Substance use: never Substance use type: does not use Living arrangements: with family Additional living arrangements comments: Resides in [place] with her . They have 2 sons. 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 Exam Narrative: APPEARANCE: Well appearing, no pain, no distress, well-nourished. HEAD: normocephalic, atraumatic. EYES: PERRLA/EOMI, conjunctivae clear. NOSE: Normal no drainage EARS:TMS clear with good light reflex. THROAT: Pharynx clear, no exudate. NECK: Supple. No adenopathy, no masses. RESPIRATORY: Airway patent, respirations nonlabored. Clear to auscultation bilaterally, no rales, rhonchi, wheezing. CARDIOVASCULAR: Regular rate and rhythm without murmurs rubs or gallops. ABDOMINAL: Soft, nontender, nondistended, normal bowel sounds MUSCULOSKELETAL: Moves all extremities. Strength/ROM intact, No edema, No calf tenderness. NEURO: Alert. Cranial nerves II through XII intact. Grossly intact SKIN: Warm, dry. Normal Color Course Course Emergency Course: 72-year-old female presented ED for evaluation of altered mental status. Patient is DNI DNR and does have advanced dementia. The options of head CT, baseline labs and admission for MRI for seizure and TIA work-up were discussed with the family and they prefer to take the patient back home to her care facility. The risks of not
[2023-04-21 11:09] LABS: Glucose Point of Care 118 mg/dl (65-105)
--- NOTE | 2023-04-21 11:42 | PC.NURSE ---
pt and family refusing for work up for stroke and would rather take pt back to nursing facility now that pt is back at baseline. pt and family made aware of risks of leaving and benefits of staying for work up. family and pt still requesting to go back to facility. pt and family made aware they can always return if they change their mind. pt taken back to facility via family.
== END 2023-04-21 11:49 ==
PROVIDERS: Emergency Provider Emergency Medicine
DX: R41.82 Altered mental status, unspecified (principal); F03.90 Unspecified dementia, unspecified severity, without behavioral disturbance, psychotic disturbance, mood disturbance, and anxiety; Z79.899 Other long term (current) drug therapy
CPT/HCPCS: 82948; 99283